=== PATIENT | female | born 1955 | race Caucasian/White ===

== ENCOUNTER 2019-07-25 10:27 | Observation (INO) | payer MEDICARE, OTHER ==
[2019-07-25] MEDS: Nitroglycerin 0.4 MG Tab.SL SL PRN ×2 (10:27→10:33)
[2019-07-25] MEDS: Sodium Chloride 0.9% 10 ML Syringe FLUSH PRN ×4 (10:27→14:00)
--- NOTE | 2019-07-25 10:35 | EDM.PDOC ---
ED HPI GENERAL MEDICAL PROBLEM - General Stated Complaint: chest pain and HAs Time Seen by Provider: 07/25/19 10:29 Source of Information: Reports: Patient History Limitations: Reports: No Limitations - History of Present Illness INITIAL COMMENTS - FREE TEXT/NARRATIVE: pt with Hx of HTN was redirected from clinic and presented here by EMS for evaluation of chest pain and sever hypertension , pt started feeling sharp pulling sensation at left side of her chest radiating to shoulder around 9 am this morning , she checked her BP and noted SBP at 200 , pt report experiencing HAs since yesterday that are worse this morning, report neck stiffness, denies any other neuro sx, denies any leg swelling or leg pain or SOB or any other associated resp or CV sx. pt denies Hx of similar problems or pain and report complaisance with taking her usual medications. pt Mx remarkable for HTN hyperlipidemia and anxiety. FH & SH are non contributory. Frontal Headache Pain Score (Numeric/FACES): 5 chest Pain Score (Numeric/FACES): 8 - Related Data Allergies Allergy/AdvReac Type Severity Reaction Status Date / Time No Known Allergies Allergy Verified 07/25/19 10:37 Home Meds: Home Meds Albuterol Sulfate [Albuterol Sulfate Hfa] 2 puff INJECT Q4HR PRN 07/25/19 [ History] Atenolol/Chlorthalidone [Atenolol-Chlorthalidone 50-25] 0.5 tab PO DAILY [History] Sertraline [Zoloft] 100 mg PO BEDTIME 07/25/19 [History] Simvastatin [Zocor] 40 mg PO DAILY 07/25/19 [History] ED ROS GENERAL - Review of Systems Review Of Systems: See Below Constitutional: Denies: Fever, Chills, Fatigue HEENT: Reports: No Symptoms. Denies: Rhinitis, Throat Pain, Vision Change Respiratory: Reports: No Symptoms. Denies: Shortness of Breath, Pleuritic Chest Pain, Cough Cardiovascular: Reports: Chest Pain, Blood Pressure Problem. Denies: Claudication, Dyspnea on Exertion, Lightheadedness, Orthopnea, Palpitations, PND , Syncope GI/Abdominal: Reports: No Symptoms : Reports: No Symptoms Musculoskeletal: Reports: No Symptoms Skin: Reports: No Symptoms Neurological: Reports: Headache. Denies: Paresthesia, Seizure, Trouble Speaking , Weakness, Change in Speech Psychiatric: Reports: Anxiety, Depression. Denies: Confusion, Suicidal Ideation ED EXAM, GENERAL - Physical Exam Exam: See Below Exam Limited By: No Limitations General Appearance: Alert, No Apparent Distress, Other (pt report 8/10 pain but clinically apear comfortable, no diaphoress) Nose: Normal Inspection, Normal Mucosa Throat/Mouth: Normal Inspection, Normal Lips Head: Atraumatic. No: Facial Swelling Neck: Normal Inspection, Supple Respiratory/Chest: No Respiratory Distress, Lungs Clear, Normal Breath Sounds Cardiovascular: Normal Peripheral Pulses, Regular Rate, Rhythm, No Gallop, No Murmur GI/Abdominal: Normal Bowel Sounds, Soft, Non-Tender Extremities: Normal Inspection, No Pedal Edema, Normal Capillary Refill Neurological: Alert, Oriented, CN II-XII Intact, Normal Cognition, No Motor/ Sensory Deficits Psychiatric: Normal Affect. No: Tearful Skin Exam: Warm, Dry Course - Vital Signs Text/Narrative:: EKG , head CT and CXR show no acute changes, labs including d dimer and trop are neg/ unremarkable. SBP now is in the 150s after 3 nitro and 10 mg labetalol. pt was given 2 mg morphin and chest pain as well HAs has subsided . pt has Chest pain & HAs with hypertension which would suggest hypertensive urgency. will repeat labetalol now and if needed will start nitroprusside . discussed with Dr Souza and will have pt admitted to his care. Last Recorded V/S: Last Vital Signs Temp Pulse 74 07/25/19 10:28 Resp 20 07/25/19 10:28 BP 236/117 H 07/25/19 10:28 Pulse Ox 100 07/25/19 10:28 - Orders/Labs/Meds Orders: Active Orders 24 hr Category Date Time Status EKG Documentation Completion [RC] ASDIRECTED Care 07/25/19 10:41 Active Chest 1V Frontal [CR] Stat Exams 07/25/19 10:40 Taken Head wo Cont [CT] Stat Exams 07/25/19 10:40 Taken UA W/MICROSCOPIC [URIN] Stat Lab 07/25/19 11:50 Ordered Morphine Med 07/25/19 10:40 Active 2 mg IVPUSH Q1H PRN Nitroglycerin [Nitrostat] Med 07/25/19 10:20 Active 0.4 mg SL Q5M PRN Sodium Chloride 0.9% [Saline Flush] Med 07/25/19 10:25 Active 10 ml FLUSH ASDIRECTED PRN Peripheral IV Insertion Adult [OM.PC] Routine Oth 07/25/19 10:25 Ordered EKG 12 Lead [EK] Routine Ther 07/25/19 10:40 Ordered Medication Orders Morphine Sulfate (Morphine) 2 mg IVPUSH Q1H PRN PRN Reason: Pain Last Admin: 07/25/19 10:50 Dose: 2 mg Nitroglycerin (Nitrostat) 0.4 mg SL Q5M PRN PRN Reason: Chest Pain Sodium Chloride (Saline Flush) 10 ml FLUSH ASDIRECTED PRN PRN Reason: Keep Vein Open Last Admin: 07/25/19 11:33 Dose: 10 ml Admin: 07/25/19 10:51 Dose: 10 ml Admin: 07/25/19 10:27 Dose: 10 ml Labs: Laboratory Tests 07/25/19 07/25/19 07/25/19 Range/Units 10:40 10:40 10:40 WBC 4.6 (4.5-12.0) X10-3/uL RBC 4.06 (3.23-5.20) x10(6)uL Hgb 13.3 (11.5-15.5) g/dL Hct 39.7 (30.0-51.3) % MCV 98.0 H (80-96) fL MCH 32.9 (27.7-33.6) pg MCHC 33.6 (32.2-35.4) g/dL RDW 12.5 (11.5-15.5) % Plt Count 230 (125-369) X10(3)uL MPV 6.8 L (7.4-10.4) fL Neut % (Auto) 64.0 (46-82) % Lymph % (Auto) 27.1 (13-37) % [place] % (Auto) 4.7 (4-12) % Eos % (Auto) 4 (1.0-5.0) % Baso % (Auto) 0 (0-2) % Neut # (Auto) 3.0 (1.6-8.3) # Lymph # (Auto) 1.2 (0.6-5.0) # [place] # (Auto) 0.2 (0.0-1.3) # Eos # (Auto) 0.2 (0.0-0.8) # Baso # (Auto) 0.0 (0.0-0.2) # D-Dimer, Quantitative 0.29 (0.0-0.59) mg/LFEU Sodium 139 (135-145) mmol/L Potassium 4.2 (3.5-5.3) mmol/L Chloride 102 (100-110) mmol/L Carbon Dioxide 27 (21-32) mmol/L BUN 13 (7-18) mg/dL Creatinine 0.7 (0.55-1.02) mg/dL Est Cr Clr Drug Dosing TNP Estimated GFR (MDRD) > 60 (>60) BUN/Creatinine Ratio 18.6 (9-20) Glucose 111 (80-116) mg/dL Calcium 9.3 (8.6-10.2) mg/dL Total Bilirubin 0.5 (0.1-1.3) mg/dL AST 16 (5-25) IU/L ALT 22 (12-36) U/L Alkaline Phosphatase 64 (56-112) IU/L Troponin I (<0.017-0.056) ng/mL Total Protein 7.1 (6.0-8.0) g/dL Albumin 3.7 (3.2-4.6) g/dL Globulin 3.4 g/dL Albumin/Globulin Ratio 1.1 07/25/19 Range/Units 10:40 WBC (4.5-12.0) X10-3/uL RBC (3.23-5.20) x10(6)uL Hgb (11.5-15.5) g/dL Hct (30.0-51.3) % MCV (80-96) fL MCH (27.7-33.6) pg MCHC (32.2-35.4) g/dL RDW (11.5-15.5) % Plt Count (125-369) X10(3)uL MPV (7.4-10.4) fL Neut % (Auto) (46-82) % Lymph % (Auto) (13-37) % [place] % (Auto) (4-12) % Eos % (Auto) (1.0-5.0) % Baso % (Auto) (0-2) % Neut # (Auto) (1.6-8.3) # Lymph # (Auto) (0.6-5.0) # [place] # (Auto) (0.0-1.3) # Eos # (Auto) (0.0-0.8) # Baso # (Auto) (0.0-0.2) # D-Dimer, Quantitative (0.0-0.59) mg/LFEU Sodium (135-145) mmol/L Potassium (3.5-5.3) mmol/L Chloride (100-110) mmol/L Carbon Dioxide (21-32) mmol/L BUN (7-18) mg/dL Creatinine (0.55-1.02) mg/dL Est Cr Clr Drug Dosing Estimated GFR (MDRD) (>60) BUN/Creatinine Ratio (9-20) Glucose (80-116) mg/dL Calcium (8.6-10.2) mg/dL Total Bilirubin (0.1-1.3) mg/dL AST (5-25) IU/L ALT (12-36) U/L Alkaline Phosphatase (56-112) IU/L Troponin I < 0.017 L (<0.017-0.056) ng/mL Total Protein (6.0-8.0) g/dL Albumin (3.2-4.6) g/dL Globulin g/dL Albumin/Globulin Ratio Meds: Medications Generic Name Dose Route Start Last Admin Trade Name Freq PRN Reason Stop Dose Admin Morphine Sulfate 2 mg 07/25/19 10:40 07/25/19 10:50 Morphine IVPUSH 2 mg Q1H PRN Administration Pain Nitroglycerin 0.4 mg 07/25/19 10:20 Nitrostat SL Q5M PRN Chest Pain Sodium Chloride 10 ml 07/25/19 10:25 07/25/19 11:33 Saline Flush FLUSH 10 ml ASDIRECTED PRN Administration Keep Vein Open Discontinued Medications Generic Name Dose Route Start Last Admin Trade Name Freq PRN Reason Stop Dose Admin Labetalol HCl 10 mg 07/25/19 11:14 07/25/19 11:31 Normodyne IVPUSH 07/25/19 11:15 10 mg ONETIME ONE Administration Protocol Departure - Departure Time of Disposition: 11:58 Disposition: Admitted As Inpatient 64 Clinical Impression: Hypertensive urgency - Discharge Information Referrals: PCP,None [Primary Care Provider] - - My Orders Last 24 Hours: My Active Orders 07/25/19 10:20 Nitroglycerin [Nitrostat] 0.4 mg SL Q5M PRN 07/25/19 10:25 Sodium Chloride 0.9% [Saline Flush] 10 ml FLUSH ASDIRECTED PRN Peripheral IV Insertion Adult [OM.PC] Routine 07/25/19 10:40 Chest 1V Frontal [CR] Stat Head wo Cont [CT] Stat Morphine 2 mg IVPUSH Q1H PRN EKG 12 Lead [EK] Routine 07/25/19 10:41 EKG Documentation Completion [RC] ASDIRECTED 07/25/19 11:50 UA W/MICROSCOPIC [URIN] Stat - Assessment/Plan Last 24 Hours: My Active Orders 07/25/19 10:20 Nitroglycerin [Nitrostat] 0.4 mg SL Q5M PRN 07/25/19 10:25 Sodium Chloride 0.9% [Saline Flush] 10 ml FLUSH ASDIRECTED PRN Peripheral IV Insertion Adult [OM.PC] Routine 07/25/19 10:40 Chest 1V Frontal [CR] Stat Head wo Cont [CT] Stat Morphine 2 mg IVPUSH Q1H PRN EKG 12 Lead [EK] Routine 07/25/19 10:41 EKG Documentation Completion [RC] ASDIRECTED 07/25/19 11:50 UA W/MICROSCOPIC [URIN] Stat
[2019-07-25] MEDS ORDERED: Morphine 2 MG/ML Syringe IVPUSH PRN (10:40)
[2019-07-25] MEDS ORDERED: Labetalol 20 MG/4 ML Syringe IVPUSH ONE ×2 (11:14→12:06)
[2019-07-25] MEDS ORDERED: Aspirin 81 MG Tab.Chew PO ONE (12:06)
[2019-07-25] MEDS ORDERED: Ondansetron 4 MG Tab.DIS PO PRN (12:29)
[2019-07-25] MEDS ORDERED: Acetaminophen 325 MG Tab PO PRN (12:29)
[2019-07-25] MEDS ORDERED: Albuterol 8 GM Inhaler *PTOM INH PRN (12:35)
[2019-07-25] MEDS ORDERED: Metoprolol Succinate 50 MG Tab.ER PO ONE (12:36)
[2019-07-25] MEDS ORDERED: Enalaprilat 1.25 MG/ML SDV IVPUSH ONE (12:39)
[2019-07-25] MEDS ORDERED: LORazepam 0.5 MG Tab PO PRN (12:45)
--- NOTE | 2019-07-25 14:12 | HP ---
ADMISSION DATE: 07/25/2019 CHIEF COMPLAINT: Hypertension. HISTORY OF PRESENT ILLNESS: Ms. Bo is a 63-year-old woman from [place], [place], with a history of hypertension, hyperlipidemia, depression and mild obesity. She states she was in her usual state of health until last evening when she felt slight chills, but no fever. She was in the clinic for sinus infection 2 weeks ago and was noted to have an elevated blood pressure. She went back to the clinic this morning for recheck of blood pressure and was found to be markedly hypertensive with blood pressure of 196/118, pulse 66, temp 97.6. She was sent over to the ER where she was evaluated and initial blood pressure was over 200 systolic. She was notably anxious along with this. She was given 2 doses of IV labetalol and is now admitted for observation. Laboratory evaluation in the emergency room was essentially normal as was EKG and CT head. The patient states she was having a left anterior chest pain that has eased up after a dose of IV morphine 7 to a 4. She has not had previous chest pain, heart problems, and her blood pressure has not been out of control to her knowledge prior to this. PAST MEDICAL HISTORY: She is 2, para 2, with normal deliveries. She has never had transfusions, jaundice or hepatitis. She is status post GRZEGORZ-[id number] for bleeding and a large cyst, benign. She has had a T and A. No other surgeries. No other hospitalizations, significant injuries, etc. MEDICATIONS: 1. Tenoretic 50-25 one-half tab daily. 2. Sertraline 100 mg daily. 3. Simvastatin 40 mg daily. 4. Albuterol 2 puffs every 4 hours p.r.n. 5. Flonase 2 squirts each nares daily. 6. Tylenol p.r.n. 7. Ibuprofen p.r.n. 8. Vitamin D 1000 units daily. ALLERGIES: None known. HABITS: Twenty pack-year history of smoking. She quit smoking 20 years ago. 3 to 4 beers per evening, 5 servings of caffeine per day. FAMILY HISTORY: The patient's father at age 92 of hypertension and a hip fracture with subsequent hemorrhage. Mother age 82 of stroke. She also had MIs in her 60s. She had 1 sister had hypertension. One sister had breast cancer. SOCIAL HISTORY: The patient lives in [place] with a boyfriend. She works at the [employer] and is accompanied by her daughter today. REVIEW OF SYSTEMS: GENERAL: No seizure, syncope, or recent weight change. SKIN: Negative for rash. HEENT: No recent changes in hearing or vision. No sore throat or URI. She is essentially over the sinus infection she had. She has not been taking decongestants. PULMONARY: No dyspnea on exertion. She has had chest pain this morning as mentioned, but none prior to this. ABDOMEN: No abdominal pain, reflux, nausea. No diarrhea, constipation. No hematochezia or melena. No hematuria. She has noticed some slight burning with urination. MUSCULOSKELETAL: No joint inflammation or swelling. PHYSICAL EXAMINATION: GENERAL: She is alert, but anxious. VITAL SIGNS: Blood pressure 236/117 initially, after her doses of metoprolol down to 170 over 90s. Pulse is 74, respirations 20, O2 saturation 100% on room air. Weight 186 pounds. SKIN: Anicteric, warm and dry without rash. No sign of trauma. HEENT: TMs are pearly white and normal. Pupils are equal and reactive. Oropharynx clear. LUNGS: Clear to the bases. HEART: Regular without murmur or gallop. ABDOMEN: Normal bowel sounds. Soft and nontender. No masses or organomegaly. EXTREMITIES: Have excellent pulses. No edema. NEUROLOGIC: Normal mental status normal with anxiety. Normal motor exam. LABORATORY DATA: White count 4600, hemoglobin 13.3, platelets 232. Chemistry panel normal. Troponin less than 0.017. Urinalysis is normal. EKG is normal. ASSESSMENT: 1. Hypertensive urgency. 2. Chronic essential hypertension. 3. Hyperlipidemia. 4. History of depression. 5. Recent sinus infection. PLAN: She is admitted to the hospital. Will provide additional IV antihypertensive medication if necessary. Repeat her EKG and troponin in a.m., increase her oral blood pressure medication and plan for a 24-to 48-hour hospital stay. /[id number] JEANNE/NOEMÍ
[2019-07-25] MEDS ORDERED: Pneumococcal Polyvalent-23 Vaccine 0.5 ML SDV IM ONE (14:34)
--- NOTE | 2019-07-25 14:52 | CR ---
INDICATION: Chest pain. CHEST: AP view of the chest, 07/25/19, portable was compared with 11/05/09. The heart is normal in size and shape. The aorta is tortuous with calcification in the arch. There is some increased density at the left lung base, which may represent linear atelectasis. A very minimal pneumonia in that area is difficult to entirely exclude. No definite consolidating pneumonia or effusion was seen. Overlying EKG leads are noted. Degenerative changes are noted in the spine. IMPRESSION: No definite acute process but difficult to exclude linear atelectatic change versus fibrosis versus minimal pneumonia and minimal linear atelectasis at the left lung base. MTDD
--- NOTE | 2019-07-25 15:04 | CT ---
INDICATION: Elevated blood pressure at 220/112, frontal headache, tightness over head and into neck, no history of trauma, no prior strokes or headaches. CT HEAD WITHOUT CONTRAST: Spiral 2.5 mm axial sections were obtained through the brain without contrast with sagittal and coronal reconstructions, 07/25/19 - no comparisons. Total exam DLP = 1,296.53 mGy-cm. Mild degenerative changes are noted at the atlantoodontoid joint. Paranasal sinuses and mastoid air cells appear to be fairly well-aerated. No definite cranial abnormality was seen. The orbits appear to be intact. Calcifications are noted in the internal carotid arteries. There is a slight shift of midline structures at the lateral ventricles to the left with a somewhat prominent right lateral ventricle. The shift is approximately 1 cm to the left. It is present only at the level of the bodies of the lateral ventricles. The third ventricle and fourth ventricle were unremarkable. At the left basal ganglia, there is suggestion of a mildly prominent lacunar infarct of indeterminate age. No other definite abnormal areas of density were identified, although some minimal low density abnormality is suspected in the white matter, suggesting minimal microvascular disease. No bleeding site or hematoma was seen. IMPRESSION: 1. No definite acute intracranial abnormality. 2. Cerebrovascular disease with question of very minimal microvascular disease and a probable lacunar infarct at the left basal ganglia. 3. Prominent right lateral ventricle may represent a normal variant with shift of midline structures to the left at the level of the body of the lateral ventricles of questionable significance. Report was called to Dr. Khalil at 1114 hours on 07/25/19. [facility]
[2019-07-25] MEDS ORDERED: Simvastatin 40 MG Tab *PTOM PO SCH (18:00)
[2019-07-25] MEDS ORDERED: Sertraline 50 MG Tab ONE (20:52)
[2019-07-25] MEDS ORDERED: Sertraline 100 MG Tab *PTOM PO SCH (21:00)
[2019-07-26] MEDS ORDERED: CHLORTHALIDONE PO SCH (09:00)
[2019-07-26] MEDS ORDERED: Enalapril 5 MG Tab PO SCH (09:00)
[2019-07-26] MEDS ORDERED: ATENOLOL CHLORTHALIDONE PO SCH (09:00)
[2019-07-26] MEDS ORDERED: [UNRECOGNIZED DRUG - OTHER] PO SCH (09:00)
[2019-07-26] MEDS ORDERED: ATENOLOL PO SCH (09:00)
--- NOTE | 2019-07-26 10:09 | DISCH ---
DISCHARGE DATE: 07/26/2019 PRIMARY DIAGNOSIS: Hypertensive urgency. FINAL DIAGNOSIS: Hypertensive urgency. OPERATIONS: None. COMPLICATIONS: None. SUMMARY: Edie is a 63-year-old woman from [place], [place], with a history of hypertension, depression, hyperlipidemia, and migraine. According to the patient, she was not feeling well. She was seen in followup in the clinic at [facility] for sinus infection and blood pressure recheck and was found to be 190s systolic. She was sent to the ER where she had a systolic of over 200. She was given IV labetalol and admitted to telemetry monitoring. EKG and troponins were negative. She also reported left-sided chest pressure but no pain, but historically did not describe any anginal equivalent symptoms. She was given enalapril 2.5 mg IV and started on enalapril 5 mg daily. Her atenolol chlorthalidone was increased from half to whole tablet daily. By the next morning, her blood pressure was improved to the 150 to 160s systolic over 70s and 80s. She feels stable. She had no chest pain, but still did describe slight chest pressure. A repeat EKG and troponin were done, were normal. She is discharged to home in improved condition to continue medications as follows: 1. Enalapril 5 mg daily. 2. Tenoretic 50-25 one daily. 3. Zoloft 100 mg daily. 4. Simvastatin 40 mg daily. She is asked to follow up with Kimberly in the clinic in 1 week and if she still continues to have any chest symptoms, consideration could be given to stress testing. /[id number] JEANNE/NOEMÍ
== END 2019-07-26 10:38 | disposition home or self-care (01) ==
LOC: FB.ED 10:27 → FB.MS 12:35
PROVIDERS: ADMIT Family Medicine; ATTEND Family Medicine
DX: I16.0 Hypertensive urgency (principal); I10 Essential (primary) hypertension; E78.5 Hyperlipidemia, unspecified; F32.9 Major depressive disorder, single episode, unspecified; G43.909 Migraine, unspecified, not intractable, without status migrainosus; Z23 Encounter for immunization; Z87.891 Personal history of nicotine dependence; Z79.51 Long term (current) use of inhaled steroids; Z79.899 Other long term (current) drug therapy
CPT/HCPCS: 36415; 70450; 71045; 80048; 80053; 81001; 84484; 85025; 85379; 90732; 93005; 96374; 96375; 99285; A9270; G0009; G0378; J2270; J3490

== ENCOUNTER 2023-03-09 08:53 | Day surgery (SDC) | payer MEDICARE ==
[2023-03-09] MEDS ORDERED: Sodium Chloride 0.9% 10 ML Syringe IV ONE (08:54)
[2023-03-09] MEDS ORDERED: Midazolam 1 MG/ML 2 ML SDV IV ONE (08:54)
[2023-03-09] MEDS ORDERED: fentaNYL 100 MCG/2 ML SDV IV ONE (08:54)
[2023-03-09] MEDS ORDERED: Lactated Ringers 1,000 ML IV PRN (09:00)
[2023-03-09] MEDS ORDERED: Sodium Chloride 0.9% 10 ML Syringe FLUSH PRN (09:00)
[2023-03-09] MEDS ORDERED: Lidocaine 2% with EPINEPHrine 1:100,000 20 ML MDV INJECT ONE (10:24)
[2023-03-09] MEDS ORDERED: acetaZOLAMIDE 500 MG Cap.ER PO ONE (11:00)
== END 2023-03-09 11:30 | disposition home or self-care (01) ==
LOC: FB.SDS 08:53
PROVIDERS: ATTEND Ophthalmology
DX: H25.13 Age-related nuclear cataract, bilateral (principal); H02.822 Cysts of right lower eyelid; H04.123 Dry eye syndrome of bilateral lacrimal glands; I10 Essential (primary) hypertension; R05.9 Cough, unspecified; R32 Unspecified urinary incontinence; F32.A Depression, unspecified; E78.5 Hyperlipidemia, unspecified; E66.9 Obesity, unspecified; M19.90 Unspecified osteoarthritis, unspecified site; Z98.890 Other specified postprocedural states; Z90.710 Acquired absence of both cervix and uterus; Z90.89 Acquired absence of other organs; Z87.891 Personal history of nicotine dependence; Z68.31 Body mass index [BMI] 31.0-31.9, adult; Z79.899 Other long term (current) drug therapy
CPT/HCPCS: 00142; 66984; 67961; A9270; J2250; J3010; J3490; V2632

== ENCOUNTER 2023-03-23 07:05 | Day surgery (SDC) | payer MEDICARE ==
[~2023-03-23 07:05] MED LIST: Lactated Ringers 1,000 ML IV PRN
[2023-03-23] MEDS ORDERED: Sodium Chloride 0.9% 10 ML Syringe IV ONE (07:06)
[2023-03-23] MEDS ORDERED: Midazolam 1 MG/ML 2 ML SDV IV ONE (07:06)
[2023-03-23] MEDS ORDERED: fentaNYL 100 MCG/2 ML SDV IV ONE (07:06)
[2023-03-23] MEDS: Sodium Chloride 0.9% 10 ML Syringe FLUSH PRN (07:44)
[2023-03-23] MEDS: acetaZOLAMIDE 500 MG Cap.ER PO ONE (09:21)
== END 2023-03-23 09:58 | disposition home or self-care (01) ==
LOC: FB.SDS 07:05
PROVIDERS: ATTEND Ophthalmology
DX: H25.9 Unspecified age-related cataract (principal); H52.202 Unspecified astigmatism, left eye; I10 Essential (primary) hypertension; F32.A Depression, unspecified; E78.5 Hyperlipidemia, unspecified; F41.9 Anxiety disorder, unspecified; E66.9 Obesity, unspecified; Z79.899 Other long term (current) drug therapy; Z90.710 Acquired absence of both cervix and uterus; Z90.79 Acquired absence of other genital organ(s); Z90.722 Acquired absence of ovaries, bilateral; Z87.891 Personal history of nicotine dependence; Z98.41 Cataract extraction status, right eye; Z68.31 Body mass index [BMI] 31.0-31.9, adult
CPT/HCPCS: 00142; 66984; A9270; J2250; J3010; J3490

== ENCOUNTER 2024-02-07 20:46 | Emergency (ER) | payer MEDICARE ==
[2024-02-07] MEDS: cloNIDine 0.1 MG Tab PO ONE (21:16)
[2024-02-07 21:30] LABS: BLOOD UREA NITROGEN,BUN 14 mg/dL (7-18); BUN/CREATININE RATIO 17.5 (9-20); CALCIUM 9.4 mg/dL (8.6-10.2); CARBON DIOXIDE,CO2 28 mmol/L (21-32); CHLORIDE,CL 93 mmol/L (100-110); CREATININE 0.8 mg/dL (0.55-1.02); ESTIMATED GFR 79 mL/min (>60); GLUCOSE RANDOM 107 mg/dL (80-116); HEMATOCRIT 38.3 % (34.2-48.2); HEMOGLOBIN 13.1 g/dL (11.4-15.5); MEAN CORPUSCULAR HEMOGLOBIN 34.4 pg (23.9-33.9); MEAN CORPUSCULAR HGB CONC 34.3 g/dL (31.9-34.8); MEAN CORPUSCULAR VOLUME 100.2 fL (76.7-100.5); MEAN PLATELET VOLUME 6.2 fL (7.1-12.4); PLATELET COUNT,PLT 260 x10(3)uL (151-488); POTASSIUM,K 4.1 mmol/L (3.5-5.3); RED BLOOD CELL COUNT 3.82 x10(6)uL (3.60-5.20); RED CELL DISTRIBUTION WIDTH 12.5 % (12.3-16.5); SODIUM,NA 132 mmol/L (135-145); WHITE BLOOD CELL COUNT,WBC 6.3 x10-3/uL (3.0-10.3)
[2024-02-07 22:32] LABS: LYMPHOCYTES PERCENT MAN 5 % (13-37); MONOCYTES PERCENT MAN 2 % (4-12); SEG NEUTROPHILS PERCENT MAN 93 % (46-82)
== END 2024-02-07 21:58 | disposition home or self-care (01) ==
LOC: FB.ED 20:46
DX: I16.0 Hypertensive urgency (principal); E78.00 Pure hypercholesterolemia, unspecified; I10 Essential (primary) hypertension; E66.9 Obesity, unspecified; Z79.899 Other long term (current) drug therapy; Z68.29 Body mass index [BMI] 29.0-29.9, adult
CPT/HCPCS: 36415; 71046; 80048; 84484; 85025; 93005; 99285; A9270

== ENCOUNTER 2024-04-13 21:04 | Emergency (ER) | payer MEDICARE ==
[2024-04-13] MEDS: Phenazopyridine 95 MG Tab PO STA (21:48)
[2024-04-13] MEDS: Cephalexin 500 MG Cap PO ONE (21:48)
== END 2024-04-13 21:50 | disposition home or self-care (01) ==
LOC: FB.ED 21:04
DX: N39.0 Urinary tract infection, site not specified (principal); I10 Essential (primary) hypertension; E78.00 Pure hypercholesterolemia, unspecified; E66.9 Obesity, unspecified; Z90.710 Acquired absence of both cervix and uterus; Z79.1 Long term (current) use of non-steroidal anti-inflammatories (NSAID); Z79.899 Other long term (current) drug therapy; Z88.2 Allergy status to sulfonamides; Z68.30 Body mass index [BMI] 30.0-30.9, adult
CPT/HCPCS: 99283; A9270

== ENCOUNTER 2024-11-27 06:17 | Day surgery (SDC) | payer MEDICARE ==
[~2024-11-27 06:17] MED LIST changes: -Lactated Ringers 1,000 ML IV PRN; +Sodium Chloride 0.9% 10 ML Syringe FLUSH PRN
[2024-11-27] MEDS ORDERED: Propofol 200 MG/20 ML SDV IV ONE (06:18)
[2024-11-27] MEDS ORDERED: Lidocaine 2% 100 MG/5 ML Syringe IVPUSH ONE (06:18)
[2024-11-27] MEDS: Lactated Ringers 1,000 ML IV SCH (07:26)
[2024-11-27] MEDS: Simethicone Drops 40 MG/0.6 ML 30 ML Bottle ONE (07:47)
== END 2024-11-27 09:12 | disposition home or self-care (01) ==
LOC: FB.SDS 06:17
PROVIDERS: ATTEND Surgery
DX: Z12.11 Encounter for screening for malignant neoplasm of colon (principal); K52.9 Noninfective gastroenteritis and colitis, unspecified; K57.30 Diverticulosis of large intestine without perforation or abscess without bleeding; I10 Essential (primary) hypertension; E78.00 Pure hypercholesterolemia, unspecified; Z87.891 Personal history of nicotine dependence; Z79.899 Other long term (current) drug therapy; Z88.2 Allergy status to sulfonamides; Z88.8 Allergy status to other drugs, medicaments and biological substances
CPT/HCPCS: 00811; 88305; 99100; A9270-GY; J2704; J7120

== ENCOUNTER 2025-04-18 16:55 | Emergency (ER) | payer MEDICARE ==
[2025-04-18 18:29] LABS: BASOPHILS ABSOLUTE AUTO 0.0 x10-3/uL (0.0-0.1); BASOPHILS PERCENT AUTO 0.1 % (0.2-1.5); EOSINOPHILS ABSOLUTE AUTO 0.0 x10-3/uL (0.0-0.8); EOSINOPHILS PERCENT AUTO 0.1 % (0.6-8.1); LYMPHOCYTES ABSOLUTE AUTO 0.4 x10-3/uL (1.0-4.4); LYMPHOCYTES PERCENT AUTO 13.3 % (18.4-52.1); MEAN PLATELET VOLUME 7.1 fL (7.1-12.4); MONOCYTES ABSOLUTE AUTO 0.2 x10-3/uL (0.3-1.0); MONOCYTES PERCENT AUTO 7.5 % (4.4-15.7); NEUTROPHILS ABSOLUTE AUTO 2.4 x10-3/uL (1.5-6.3); NEUTROPHILS PERCENT AUTO 79.0 % (30.8-76.2); PLATELET COUNT,PLT 178 x10(3)uL (151-488); RED BLOOD CELL COUNT 3.75 x10(6)uL (3.60-5.20); RED CELL DISTRIBUTION WIDTH 12.1 % (12.3-16.5); WHITE BLOOD CELL COUNT,WBC 3.1 x10-3/uL (3.0-10.3)
[2025-04-18 18:38] LABS: A/G RATIO 1.4; ALANINE AMINOTRANSFERASE,ALT 26 U/L (12-36); ASPARTATE AMNIOTRANSFERASE,AST 29 IU/L (5-25); BILIRUBIN TOTAL 1.2 mg/dL (0.1-1.3); BLOOD UREA NITROGEN,BUN 6 mg/dL (7-18); CARBON DIOXIDE,CO2 27 mmol/L (21-32); CREATININE 0.7 mg/dL (0.55-1.02); EST CRCL DRUG DOSING (CG) 60.98 mL/min; ESTIMATED GFR 92 mL/min (>60); GLUCOSE RANDOM 102 mg/dL (80-116); PROTEIN TOTAL,TP 6.9 g/dL (6.0-8.0)
[2025-04-18 18:41] LABS: POTASSIUM,K 2.7 mmol/L (3.5-5.3); SODIUM,NA 114 mmol/L (135-145)
[2025-04-18 18:42] LABS: CHLORIDE,CL 77 mmol/L (100-110)
[2025-04-18] MEDS: Potassium Chloride 20 MEQ Tab.ER PO ONE (19:05)
[2025-04-18 20:37] LABS: BLOOD UREA NITROGEN,BUN 6 mg/dL (7-18); CARBON DIOXIDE,CO2 27 mmol/L (21-32); CREATININE 0.7 mg/dL (0.55-1.02); EST CRCL DRUG DOSING (CG) 60.98 mL/min; ESTIMATED GFR 92 mL/min (>60); GLUCOSE RANDOM 97 mg/dL (80-116); POTASSIUM,K 3.0 mmol/L (3.5-5.3); SODIUM,NA 121 mmol/L (135-145)
[2025-04-18 20:39] LABS: CHLORIDE,CL 87 mmol/L (100-110)
== END 2025-04-18 21:11 | disposition home or self-care (01) ==
LOC: FB.ED 16:55
DX: E87.6 Hypokalemia (principal); E87.1 Hypo-osmolality and hyponatremia; E83.42 Hypomagnesemia; E78.00 Pure hypercholesterolemia, unspecified; I10 Essential (primary) hypertension; Z79.82 Long term (current) use of aspirin; Z79.899 Other long term (current) drug therapy; Z79.51 Long term (current) use of inhaled steroids
CPT/HCPCS: 80048; 80053; 83735; 83930; 85025; 96360; 96361; 99284; A9270; J7030